=== PATIENT | female | born 1980 | race Native Hawaiian/Other Pacific Islander ===

== ENCOUNTER 2016-08-19 18:04 | Emergency (ER) | payer OTHER ==
[2016-08-19] MEDS ORDERED: Lidocaine 2% Inj (20ml) ONE (18:16)
[2016-08-19 18:41] VITALS: BP 130/89; PULSE 80; RESP 16; TEMP 98.1; O2SAT 98
[2016-08-19] MEDS ORDERED: Tmp-Smz 800 mg-160 mg DS Tab PO STA (18:43)
[2016-08-19] MEDS ORDERED: Tmp-Smz 800 mg-160 mg DS Tab ONE (18:43)
--- NOTE | 2016-08-19 18:56 | C.PDOC ---
History Of Present Illness 36 y/o female presents to ED for evaluation of abscess to left upper back. Pt states pain and swelling onset 1 week ago, gradually worsening. Denies fever, chills or any other complaints. Chief Complaint (Nursing): Abnormal Skin Integrity History Per: Patient History/Exam Limitations: no limitations Onset/Duration Of Symptoms: Days Current Symptoms Are (Timing): Worse Quality Of Symptoms: Painful, Swollen Severity: Moderate Recent travel outside of the [place]: No Past Medical History Reviewed: Historical Data, Nursing Documentation, Vital Signs Vital Signs: Last Vital Signs Temp 98.1 F 08/19/16 18:16 Pulse 80 08/19/16 18:16 Resp 16 08/19/16 18:16 BP 130/89 08/19/16 18:16 Pulse Ox 98 08/19/16 18:58 Family History: States: Unknown Family Hx - Social History Hx Alcohol Use: No Hx Substance Use: No - Immunization History Hx Tetanus Toxoid Vaccination: No Hx Influenza Vaccination: Yes Hx Pneumococcal Vaccination: No Review Of Systems Except As Marked, All Systems Reviewed And Found Negative. Constitutional: Negative for: Fever, Chills Skin: Positive for: Other (abscess to left upper back) Physical Exam - Physical Exam Appears: Non-toxic, No Acute Distress Skin: Warm, Dry, No Rash, Other (large fluctuant abscess to left upper back with surrounding erythema, tenderness on palpation) Head: Atraumatic, Normacephalic Extremity: Bilateral: Atraumatic Neurological/Psych: Oriented x3, Normal Speech ED Course And Treatment O2 Sat by Pulse Oximetry: 98 (room air) Pulse Ox Interpretation: Normal - Incision & Drainage Of Abscess Prep Used: Sterile Water, Betadine Procedure: Incised W/Scalpel Blade#: (11), Drained Pus, Probed To Break Up Loculations, Packed W/Gauze, Cultures Obtained And Sent To Lab Disposition - Disposition Referrals: [facility], [Non-Staff] - Disposition: HOME/ ROUTINE Disposition Time: 18:50 Condition: IMPROVED Additional Instructions: Thank you for letting us take care of you today. Your provider was Dr. Duffy. You were treated for I&D of an abscess. The emergency medical care you received today was directed at your acute symptoms. If you were prescribed any medication, please fill it and take as directed. It may take several days for your symptoms to resolve. Return to the Emergency Department if your symptoms worsen, do not improve, or if you have any other problems. Please contact your doctor or call one of the physicians/clinics you have been referred to that are listed on the Patient Visit Information form that is included in your discharge packet. Bring any paperwork you were given at discharge with you along with any medications you are taking to your follow up visit. Our treatment cannot replace ongoing medical care by a primary care provider (PCP) outside of the emergency department. Thank you for allowing the [facility] team to be part of your care today. Follow up in the ED in 2 days for a wound check. Apply dry heat to the area as much as possible. Prescriptions: Sulfamethoxazole/Trimethoprim [Bactrim DS 800 mg-160 mg] 1 tab PO Q12 #14 tab Instructions: Abscess (ED), Abscess Follow-up (ED) - Clinical Impression Clinical Impression: Abscess - Scribe Statement The provider has reviewed the documentation as recorded by the Iliana Flowers Provider Attestation: All medical record entries made by the Iliana were at my direction and personally dictated by me. I have reviewed the chart and agree that the record accurately reflects my personal performance of the history, physical exam, medical decision making, and the department course for this patient. I have also personally directed, reviewed, and agree with the discharge instructions and disposition.
== END 2016-08-19 18:58 | disposition home or self-care (01) ==
LOC: C.ER 18:04
DX: L02.212 Cutaneous abscess of back [any part, except buttock and flank] (principal)

== ENCOUNTER 2016-08-21 14:40 | Emergency (ER) | payer OTHER ==
[2016-08-21 14:52] VITALS: BP 128/82; TEMP 98.1; O2SAT 98
[2016-08-21] MEDS ORDERED: Bacitracin 500 Units/gm Oint Foilpak UD ONE (15:01)
--- NOTE | 2016-08-21 15:01 | C.PDOC ---
History Of Present Illness 36 year old female presents to the ED seeking a wound assessment of a small abscess to the upper left scapula. Patient states the abscess was drained on 11/2016 and packing was placed and she is in good compliance taking two bactrim a day. She denies any fever or trauma to the area. Time Seen by Provider: 08/21/16 14:51 Chief Complaint (Nursing): Wound Check History Per: Patient History/Exam Limitations: no limitations Onset/Duration Of Symptoms: Other (procedure performed two days ago ) Quality Of Symptoms: denies: Painful, Itching, Swollen Recent travel outside of the [place]: No Past Medical History Reviewed: Historical Data, Nursing Documentation, Vital Signs Vital Signs: Last Vital Signs Temp 98.1 F 08/21/16 14:50 Pulse 92 H 08/21/16 15:17 Resp 18 08/21/16 15:17 BP 128/82 08/21/16 14:50 Pulse Ox 98 08/21/16 17:45 Family History: States: Unknown Family Hx - Social History Hx Alcohol Use: No Hx Substance Use: No - Immunization History Hx Tetanus Toxoid Vaccination: No Hx Influenza Vaccination: Yes Hx Pneumococcal Vaccination: No Review Of Systems Constitutional: Negative for: Fever, Chills, Sweats Cardiovascular: Negative for: Chest Pain, Palpitations Respiratory: Negative for: Cough, Shortness of Breath Gastrointestinal: Negative for: Nausea, Vomiting, Abdominal Pain, Diarrhea Skin: Positive for: Other (small abscess to upper left scapula ) Physical Exam - Physical Exam Appears: Non-toxic, No Acute Distress Skin: Warm, Dry, Other (healing wound left upper scapula area with packing in place, no surrounding erythema) Oral Mucosa: Moist Neck: Supple Chest: Symmetrical, No Deformity Cardiovascular: Rhythm Regular Respiratory: No Rales, No Rhonchi, No Stridor, No Wheezing Extremity: Normal ROM, No Tenderness Neurological/Psych: Oriented x3 ED Course And Treatment O2 Sat by Pulse Oximetry: 98 (room air ) Progress Note: Packing was pulled and a clear serosanguinous drainage was seen and was non-foul smelling. Medical Decision Making Medical Decision Making: gauze packing removed, good sero-sanguinous d/c, non-foul smelling c/w good healing not repacked continue Bactrim BID and Motrin PRN Disposition Doctor Will See Patient In The: Office Counseled Patient/Family Regarding: Studies Performed, Diagnosis - Disposition Referrals: Luís Leon MD [Staff Provider] - Disposition: HOME/ ROUTINE Disposition Time: 15:00 Condition: GOOD Additional Instructions: soap and warm water to clean daily and Bacitracin ointment w gauze covering. Continue Bactrim 2x/day until complete Motrin as needed for pain Follow-up with Dr. Leon or return to ED/[facility] as needed. Instructions: Chronic Wound Care (ED) - Clinical Impression Clinical Impression: Wound check, abscess - Scribe Statement The provider has reviewed the documentation as recorded by the Scribe Gracie Vieira All medical record entries made by the Scribe were at my direction and personally dictated by me. I have reviewed the chart and agree that the record accurately reflects my personal performance of the history, physical exam, medical decision making, and the department course for this patient. I have also personally directed, reviewed, and agree with the discharge instructions and disposition.
[2016-08-21 15:18] VITALS: PULSE 92; RESP 18
== END 2016-08-21 15:18 | disposition home or self-care (01) ==
LOC: C.ER 14:40
DX: Z48.00 Encounter for change or removal of nonsurgical wound dressing (principal)